=== PATIENT | female | born 1995 | race Caucasian/White ===

== ENCOUNTER 2021-05-15 21:25 | Emergency (ER) | payer MEDICAID, SELFPAY ==
[2021-05-15] MEDS ORDERED: Ondansetron PF 4 MG/2 ML Vial ONE (21:43)
[2021-05-15] MEDS ORDERED: Morphine 4 MG/ML VIAL ONE ×2 (22:02→23:08)
[2021-05-15 22:06] LABS: #Basophils 0.1 thou/uL (0.0-0.2); #Eosinphils 0.1 thou/uL (0.0-0.7); #Lymphocytes 1.7 thou/uL (1.20-3.40); #Monocytes 0.6 thou/uL (0.11-0.59); #Neutrophils 6.6 thou/uL (1.40-6.50); %Monocytes 6.1 % (0.0-10.0); %Neutrophils 72.9 % (42.0-75.0); Hemoglobin 13.2 g/dL (12.0-16.0); Mean Corpuscular HGB CONC 32.9 g/dL (32.0-36.0); Mean Corpuscular Hemoglobin 28.8 pg (27.0-31.0); Mean Corpuscular Volume 87.6 fL (78.0-98.0); Mean Platelet Volume 6.8 fL (7.4-10.4); Platelet Count 281 thou/uL (130-400); RBC Distribution Width 12.2 % (11.5-14.5); Red Blood Cell (RBC) Count 4.57 mill/uL (4.20-5.40)
[2021-05-15 22:20] LABS: PTT 29.9 sec (22.9-36.1); Prothrombin Time 12.8 sec (12.0-14.7)
[2021-05-15 22:20] LABS: Bilirubin Negative (Negative); Blood, Urine Large (Negative); Clarity Clear (Clear); Glucose, Urine (Dipstick) Negative (Negative); Ketone, Urine Negative (Negative); Leukocyte Small (Negative); Nitrite Negative (Negative); Protein, Urine (Dipstick) Negative (Neg-Trace); Urobilinogen 0.2 mg/dL (Less than 2)
[2021-05-15] MEDS ORDERED: Pantoprazole 40 MG VIAL ONE (22:21)
[2021-05-15 22:30] LABS: ALT (SGPT) 23 U/L (8-55); AST (SGOT) 20 U/L (5-34); Albumin 4.3 g/dL (3.5-5.0); Alkaline Phosphatase 69 U/L (40-110); Anion Gap 17 mmol/L (10-20); BUN (Urea Nitrogen) 6 mg/dL (7.0-18.7); Bilirubin, Total 0.3 mg/dL (0.2-1.2); Calc. Creatinine Clearance 0 mL/min (70-130); Calcium 9.6 mg/dL (7.8-10.44); Carbon Dioxide 20 mmol/L (22-29); Chloride 108 mmol/L (98-107); Glucose 94 mg/dL (70-105); Potassium 3.7 mmol/L (3.5-5.1); Protein, Total 7.3 g/dL (6.0-8.3); Sodium 141 mmol/L (136-145)
[2021-05-15 22:32] LABS: Pregnancy Test - Urine (BHCG) Negative (Negative); Pregu Control Background? CLEAR/WHITE (CLR/WHITE); Pregu Control Bar Appear? YES (CONTROL BAR); Specific Gravity 1.013 (1.002-1.036)
[2021-05-15 22:37] LABS: Bacteria/HPF 1+ HPF (None Seen); Transitional Epithelial 0-3 HPF (None Seen); Trichomonas/HPF 1+ HPF (None Seen)
[2021-05-15] MEDS ORDERED: Sodium Chloride 0.9% 100 ML ONE (23:29)
[2021-05-15] MEDS ORDERED: Prochlorperazine 10 MG/2 ML VIAL ONE (23:29)
[2021-05-15] MEDS ORDERED: cefTRIAXone\\ROCEPHIN 1 GM VIAL ONE (23:29)
[2021-05-16] MEDS ORDERED: Morphine 4 MG/ML VIAL ONE (00:13)
[2021-05-16 01:13] LABS: Band 5 % (5-11); Hemoglobin 12.5 g/dL (12.0-16.0); Lymphocytes 21 % (21-51); MDiff Complete? YES; Mean Corpuscular HGB CONC 32.8 g/dL (32.0-36.0); Mean Corpuscular Volume 88.3 fL (78.0-98.0); Mean Platelet Volume 6.9 fL (7.4-10.4); Monocytes 6 % (0-10); Neutrophil 67 % (42-75); Platelet Count 265 thou/uL (130-400); RBC Distribution Width 12.2 % (11.5-14.5); Red Blood Cell (RBC) Count 4.32 mill/uL (4.20-5.40); White Blood Cell (WBC) Count 8.8 thou/uL (4.8-10.8)
== END 2021-05-16 01:32 | disposition home or self-care (01) ==
LOC: MADERS 21:25
DX: S30.1XXA Contusion of abdominal wall, initial encounter (principal); N30.01 Acute cystitis with hematuria; R11.2 Nausea with vomiting, unspecified; A59.9 Trichomoniasis, unspecified; W55.12XA Struck by horse, initial encounter
CPT/HCPCS: 74177; 80053; 81003; 81015; 81025; 85025; 85610; 85730; 96374; 96375; 96376; C9113; J0696; J0780; J2270; J2405; J3490